=== PATIENT | female | born 1965 | race Two or more races ===

== ENCOUNTER 2017-03-18 19:48 | Emergency (ER) | payer OTHER ==
[~2017-03-18] VITALS: Ht 162.6 cm; Wt 63.5 kg
--- NOTE | 2017-03-18 20:32 | NUR ---
PT BIB FAMILY TO ER BED 10 C/O L FOOT PAIN S/P FALL LAST SATURDAY. SWELLING NOTED. NO HEAD TRAUMA. HX OF BLOOD CLOT TO LLE 6 YEARS AGO. TAKES XARELTO. PT GOWNED AND PLACED ON MONITOR. DENIES CHEST PAIN OR SOB AT THIS TIME. AWAITING MD LONGO.
--- NOTE | 2017-03-18 21:33 | NUR ---
RADIOLOGY AT BEDSIDE FOR L FOOT XRAY.
--- NOTE | 2017-03-18 21:38 | NUR ---
DERRICK SCALES AT [facility] FOR EVAL.
--- NOTE | 2017-03-18 21:58 | NUR ---
U/S TECH AT BEDSIDE FOR LLE DUPLEX ULTRASOUND.
--- NOTE | 2017-03-18 23:10 | NUR ---
SPLINT PROVIDED. Patient discharged to home in stable condition. Written and verbal after care instructions given. Patient verbalizes understanding of instruction.Crutches dispensed. Pt instructed on proper use of crutches. Patient able to demonstrate correct use of crutches.
[2017-03-18 23:12] VITALS: BP 128/76
== END 2017-03-18 23:13 | disposition home or self-care (01) ==
LOC: ER 19:48
DX: S92.352A Displaced fracture of fifth metatarsal bone, left foot, initial encounter for closed fracture (principal); W19.XXXA Unspecified fall, initial encounter; Y93.89 Activity, other specified; Y92.89 Other specified places as the place of occurrence of the external cause; Y99.8 Other external cause status
CPT/HCPCS: 73610-TC; 73630-TC; 93971-TC; A4606; Z7610

== ENCOUNTER 2017-08-30 20:24 | Emergency (ER) | payer OTHER ==
[~2017-08-30] VITALS: Ht 165.1 cm; Wt 77.1 kg
--- NOTE | 2017-08-30 21:57 | NUR ---
PT BB SELF FROM HOME WITH C/C OF CP/HEADACHE X 1 WEEK WITH NAUSEA. PT STATES CP GETS WORSE WITH DEEP BREATHS. PT STATES SHE IS HAVING A BAD THROBBING HEADACHE THAT IS MOSTLY FELT IN THE BACK OF HER HEAD/NECK. PT IS AAOX4. SKIN PINK AND WARM. RESP EVEN AND NONE LABORED. NO S/S OF ACUTE DISTRESS NOTED. VSS. AWAITING MD FOR EVAL. PT GOWNED AND PLACED ON MONITOR AND POX. CALL LIGHT PLACED WITHIN REACH.
[2017-08-30 22:08] LABS: BASOPHILS % (AUTO) 0.5 % (0.0-2.0); EOSINOPHILS # (AUTO) 0.2 /CMM (0.0-0.7); EOSINOPHILS % (AUTO) 3.6 % (0.0-6.0); HEMATOCRIT 36 % (33-45); HEMOGLOBIN 12.2 g/dL (11.5-14.8); LYMPHOCYTES # (AUTO) 2.1 /CMM (0.8-4.8); LYMPHOCYTES % (AUTO) 36.9 % (20.0-44.0); MEAN CORPUSCULAR HEMOGLOBIN 30 PG (26.0-33.0); MEAN CORPUSCULAR HGB CONC 34 g/dl (31.0-36.0); MEAN CORPUSCULAR VOLUME 88 fL (82-100); MONOCYTES # (AUTO) 0.5 /CMM (0.1-1.30); MONOCYTES % (AUTO) 8.5 % (2.0-12.0); NEUTROPHILS # (AUTO) 2.9 /CMM (1.8-8.9); NEUTROPHILS % (AUTO) 50.5 % (43.0-81.0); PLATELET COUNT (AUTO) 318 /CMM (150-450); RDW COEFFICIENT OF VARIATION 12.2 (11.5-15.0); RED BLOOD CELL COUNT(AUTO) 4.06 MIL/uL (4.0-5.2); WHITE BLOOD COUNT (AUTO) 5.7 K/uL (4.3-11.0)
[2017-08-30 22:19] LABS: CALCIUM, SERUM 9.1 mg/dL (8.5-10.1); CARBON DIOXIDE 32 mmol/L (21-32); CHLORIDE 101 mmol/L (98-107); CREATININE 0.7 mg/dL (0.6-1.3); GLUCOSE 97 mg/dL (74-106); POTASSIUM 4.1 mmol/L (3.5-5.1); SODIUM SERUM 141 mmol/L (136-145); UREA NITROGEN, BLOOD 13 mg/dL (7-18)
[2017-08-30 22:27] LABS: TROPONIN I < 0.017 ng/mL (0.00-0.056)
[2017-08-30 22:31] LABS: INR 0.92 (0.87-1.13)
[2017-08-31] MEDS ORDERED: KETOROLAC TROMETHAMINE INJ 30 MG/ML VIAL IV ONE (01:30)
[2017-08-31] MEDS ORDERED: KETOROLAC TROMETHAMINE INJ 30 MG/ML VIAL ONE (02:07)
--- NOTE | 2017-08-31 02:53 | NUR ---
Cesar leon in [facility] - 08/31/17 at 0253 by EDDE GAVE REPORT TO ICU NURSE MARIANA FOR HO.
--- NOTE | 2017-08-31 02:53 | NUR ---
Patient discharged to home in stable condition. Written and verbal after care instructions and Rx given. Patient verbalizes understanding of instruction.IV removed. Catheter intact and site benign. Pressure and 4x4 applied to site. No bleeding noted. Pt ambulated with steady gait out of er.
[2017-08-31 03:10] VITALS: BP 129/81
== END 2017-08-31 03:31 | disposition home or self-care (01) ==
LOC: ER 20:26
DX: J18.9 Pneumonia, unspecified organism (principal); R07.2 Precordial pain; J90 Pleural effusion, not elsewhere classified; R51 Headache; I48.91 Unspecified atrial fibrillation; G47.00 Insomnia, unspecified; I10 Essential (primary) hypertension; Z86.718 Personal history of other venous thrombosis and embolism
CPT/HCPCS: 36415 ×2; 70450; 71045; 80048; 84484 ×2; 85025; 85730; 93005 ×2; 96374; 99285; A4606; J1885; Z7610